=== PATIENT | male | born 1940 | race Caucasian/White ===

== ENCOUNTER → 2017-02-25 09:40 | Outpatient (CLI) | payer MEDICARE, BC ==
--- NOTE | 2017-03-05 06:59 | EEG ---
PATIENT:LAY FELIX DATE OF SERVICE: 02/25/17 MEDICAL RECORD: [id number] DATE OF : 38 LOCATION: [facility] ADMISSION DATE: 02/25/17 REFERRING PHYSICIAN: INTERPRETING PHYSICIAN: CANDACE BOX MD DATE OF SERVICE: 02/25/2017 Electroencephalographic Report REFERRING PHYSICIAN: Dr. Aguirre as an outpatient. ELECTROENCEPHALOGRAM NUMBER: [id number]. DATE OF EXAMINATION: 02/25/2017 at 10:00 a.m. TECHNICAL DATA: This electroencephalographic recording consisted of approximately 20 minutes of data collection utilizing the international 10/20 system of electrode placement and both referential and non-referential montages. Sixteen channels of electrocerebral recording are accompanied by a 17th channel dedicated to the electrocardiographic rhythm and 2 channels of electromyographic recording. Recording is performed in the awake and drowsy states utilizing activation by photic stimulation. ELECTROENCEPHALOGRAPHIC DATA: The awake state comprises only approximately 30% of the recorded electrocerebral activity. Electromyographic artifact is prominent and rapid eye movements are seen. The posterior dominant background consists of a symmetric, semi-arrhythmic, waxing and waning 7-8 Hz alpha activity, which is suppressed by eye opening. The drowsy state comprises the remaining portion of the recorded electrocerebral activity. Electromyographic artifact is diminished and rapid eye movements are not seen. The posterior dominant background is relatively suppressed and tends more towards 7 Hz. No abnormal or focal slowing is identified. No epileptiform discharges are seen. Photic stimulation induces no abnormal change in the recorded electrocerebral activity. INTERPRETATION: Normal (awake and drowsy). This is a normal electroencephalographic recording. TRANSINT:[id number] Voice Confirmation ID: [id number] DOCUMENT ID: [id number] ELECTROENCEPHALOGRAM REPORT [id number] LAY FELIX CANDACE BOX MD at 0659 CC: [id number] DICTATION DATE: 02/27/17 0634 ROD CUP FILLER: 02/27/17 0650 [facility] CLI 02/25/17 [facility] [address] [place] [address]
== END | disposition home or self-care (01) ==
LOC: D.CN 09:40
DX: R55 Syncope and collapse (principal)

== ENCOUNTER → 2017-04-30 13:31 | Outpatient (CLI) | payer MEDICARE, BC | END | disposition home or self-care (01) | LOC: D.CT 13:31 | DX: R26.9 Unspecified abnormalities of gait and mobility (principal) ==

== ENCOUNTER → 2018-07-31 14:27 | Outpatient (CLI) | payer MEDICARE, BC | END | disposition home or self-care (01) | LOC: D.CT 14:27 | DX: M54.16 Radiculopathy, lumbar region (principal) ==

== ENCOUNTER 2018-10-02 09:16 | Day surgery (SDC) | payer MEDICARE, BC ==
[~2018-10-02] VITALS: Ht 175.3 cm; Wt 83.9 kg
--- NOTE | ~2018-10-02 | OP ---
PATIENT NAME: LAY FELIX MEDICAL RECORD: [id number] :38 LOCATION:[facility] ADMISSION DATE: SURGEON: TRAM FLORES MD DATE OF OPERATION: 10/02/2018 PREOPERATIVE DIAGNOSES: Lumbar spinal stenosis and foraminal stenosis, left L3-L4 and L4-L5. POSTOPERATIVE DIAGNOSES: Lumbar spinal stenosis L3-L4, L4-L5 left foraminal stenosis and lumbar spinal stenosis. SURGEON: Tram Flores MD PROCEDURES: Lumbar laminotomy, medial facetectomy and foraminotomy L3-L4 left and L4-L5 left with METRx retractor. PRIMARY CARE DOCTOR: Keshawn Aguirre DO DESCRIPTION AND TECHNIQUE: After induction of general endotracheal anesthesia, the patient was rolled prone on a Mc frame. Lumbar spine was prepped and draped in usual sterile fashion. Fluoroscopic x-ray and spinal needle localized the L3-L4 interspace on the left side. A stab incision was created with #11 blade. Series of dilators were used to advance the METRx retractor to the L3-L4 interspace on the left side. The level was confirmed with fluoroscopic x-ray. A microscope and Midas Danial drill were used to perform laminotomy, medial facetectomy and foraminotomy L3-L4 left and L4-L5 left. Hypertrophied ligamentum flavum was removed with both levels with Cloward rongeurs. Following this, both the L3, L4, and L5 nerve roots were decompressed well. Meticulous hemostasis was maintained throughout the wound. Wound was irrigated with copious amounts of Ancef irrigant solution. The fascia was closed with 2-0 Vicryl suture, the subdermal layer was closed with 3-0 Vicryl suture. The skin was closed with sharda. A sterile dressing was applied to the wound. The patient was awakened in good condition, taken to recovery. All counts were reported as correct. Estimated blood loss was minimal. TRANSINT:[id number] Voice Confirmation ID: [id number] DOCUMENT ID: [id number] TRAM FLORES MD at 1821 CC: [id number] DICTATION DATE: 10/10/18 1307 MASTER CARPENTER: 10/10/18 1428 [facility] 10/02/18 [place] [address]
[2018-10-02 09:38] LABS: HEMATOCRIT 42.5 % (42.0-54.0); HEMOGLOBIN 14.4 g/dL (13.5-17.5); MCHC 33.9 g/dL (31.0-37.0); MCV 91.6 fL (80.0-100.0); RBC 4.64 10x6/uL (4.20-6.10); RDW 13.6 % (11.5-14.5); WBC 5.3 10x3/uL (4.8-10.8)
[2018-10-02 09:51] LABS: CALC OSMOLALITY 278 mosm/kg (275-300); CALCIUM 9.1 mg/dL (8.5-10.1); CARBON DIOXIDE 29.7 mmol/L (21.0-32.0); CHLORIDE - SERUM 100 mmol/L (98-107); CREATININE - SERUM 0.8 mg/dL (0.6-1.3); GLUCOSE 119 mg/dL (74-106); POTASSIUM - SERUM 4.3 mmol/L (3.5-5.1); SODIUM 138 mmol/L (136-145); UREA NITROGEN 18 mg/dL (7-18); eGFR NON AFRICAN AMERICAN > 90 mL/min (90-120)
[2018-10-02] MEDS ORDERED: CELEXA40 MG PO (09:58)
[2018-10-02] MEDS ORDERED: FLOMAX0.4 MG PO (09:58)
[2018-10-02] MEDS ORDERED: CARBIDOPA-LEVO1 EAC2 (10:00)
[2018-10-02] MEDS ORDERED: PROSCAR5 MG PO (10:01)
[2018-10-02] MEDS ORDERED: SYMBICORT 16010.2 GM (10:01)
[2018-10-02] MEDS ORDERED: SPIRIVA18 MCG (10:02)
[2018-10-02] MEDS ORDERED: NEURONTIN 300300 MG (10:02)
[2018-10-02] MEDS ORDERED: NORCO 10-325 TA1 TAB (10:03)
[2018-10-02 10:07] VITALS: BP 148/71; Ht 175.3 cm; Wt 83.9 kg
== END 2018-10-02 17:08 | disposition home or self-care (01) ==
LOC: D.OPS 09:16 → D.PAN 12:15 → D.OPS 12:15
PROVIDERS: Anesthesiology
DX: M48.061 Spinal stenosis, lumbar region without neurogenic claudication (principal); Z01.812 Encounter for preprocedural laboratory examination

== ENCOUNTER → 2021-01-27 18:23 | Outpatient (CLI) | payer MEDICARE, BC ==
[2018-10-02 10:07] VITALS: BMI 27.3
[~2021-01-27 18:23] MED LIST: CARBIDOPA-LEVO1 EAC2; CELEXA40 MG PO; FLOMAX0.4 MG PO; NEURONTIN 300300 MG; NORCO 10-325 TA1 TAB; PROSCAR5 MG PO; SPIRIVA18 MCG; SYMBICORT 16010.2 GM
[2021-01-27 19:22] LABS: BASOPHILS 0 % (0-2); EOSINOPHILS 1.2 % (0-7); HEMATOCRIT 39.6 % (42.0-54.0); HEMOGLOBIN 13.1 g/dL (13.5-17.5); IMMATURE GRANULOCYTES 0.3 % (0-5); LYMPHOCYTES 19.9 % (15-50); MCH 30.1 pg (26.0-34.0); MCHC 33.1 g/dL (31.0-37.0); MEAN PLATELET VOLUME 10.8 fL (7.4-10.4); NEUTROPHIL ABS# 4.07 10x3/uL (1.78-5.38); NEUTROPHILS 67.6 % (40-80); PLATELET COUNT 170 10x3/uL (130-400); RBC 4.35 10x6/uL (4.20-6.10); RDW 12.3 % (11.5-14.5)
[2021-01-27 19:48] LABS: ALBUMIN 3.1 g/dL (3.4-5.0); ALKALINE PHOSPHATASE 67 U/L (30-120); ALT (SGPT) 32 U/L (10-68); BILIRUBIN - TOTAL 0.39 mg/dL (0.2-1.3); CALC OSMOLALITY 279 mosm/kg (275-300); CALCIUM 8.6 mg/dL (8.5-10.1); CARBON DIOXIDE 32.2 mmol/L (21.0-32.0); CHLORIDE - SERUM 102 mmol/L (98-107); CREATININE - SERUM 0.7 mg/dL (0.6-1.3); GLUCOSE 116 mg/dL (74-106); POTASSIUM - SERUM 3.6 mmol/L (3.5-5.1); PROTEIN - SERUM 6.2 g/dL (6.4-8.2); SODIUM 138 mmol/L (136-145); THYROID STIMULATING HORMONE 1.57 uIU/mL (0.36-3.74); UREA NITROGEN 22 mg/dL (7-18); eGFR NON AFRICAN AMERICAN > 90 mL/min (90-120)
[2021-01-27 20:11] LABS: % SATURATION 24 % (15-55); IRON 50 ug/dl (35-150); TOTAL IRON BIND CAPACITY 208 ug/dl (260-445); UNSAT IRON BIND CAPACITY 158 ug/dl (150-375)
== END | disposition home or self-care (01) ==
LOC: D.LABREF 18:23
PROVIDERS: ATTEND Family Medicine
DX: J44.1 Chronic obstructive pulmonary disease with (acute) exacerbation (principal); I10 Essential (primary) hypertension; D50.9 Iron deficiency anemia, unspecified